=== PATIENT | male | born 2000 | race Caucasian/White ===

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

== ENCOUNTER → 2021-10-14 16:47 | Outpatient (CLI) | payer BC, OTHER, SELFPAY ==
[2021-10-14 17:54] LABS: Add Manual Diff / Slide Review NO; Basophils Absolute Auto 0 /uL (0-100); Eosinophils Absolute Auto 100 /uL (0-450); Eosinophils Percent Auto 2.9 % (2-4); Hematocrit 44.8 % (41-53); Hemoglobin 15.3 g/dL (13.5-17.5); Lymphocytes Absolute Auto 1300 /uL (1100-4500); Lymphocytes Percent Auto 26.5 % (25-40); Mean Corpuscular HGB Conc 34.2 % (30-36); Mean Corpuscular Hemoglobin 29.3 PG (26-34); Mean Corpuscular Volume 85.8 fL (80-100); Monocytes Absolute Auto 500 /uL (0-900); Monocytes Percent Auto 10.2 % (3-14); Neutrophils Absolute Auto 2900 /uL (1500-7000); Neutrophils Percent Auto 59.4 % (50-75); Platelet Count 198 X10^3/uL (150-400); Red Blood Cell Count 5.23 X10^6/uL (4.5-5.9); White Blood Cell Count 4.9 X10^3/uL (4.5-11.0)
[2021-10-14 18:04] LABS: Reticulocyte Count, Percent 0.8 % (0.9-2.6)
[2021-10-14 18:55] LABS: Albumin 4.5 g/dL (3.5-5.0); BUN Creatinine Ratio 20.9 (6-22); Blood Urea Nitrogen 18 mg/dL (9-20); Calcium 8.8 mg/dL (8.4-10.2); Carbon Dioxide 29 mmol/L (22-32); Chloride 102 mmol/L (98-107); Estimated Glomerular Filt Rate > 60 mL/min (>60); Glucose 111 mg/dL (70-100); HEMOLYSIS < 15 (0-50); Phosphorous 3.9 mg/dL (4.5-5.5); Potassium 3.7 mmol/L (3.4-5.1); Sodium 143 mmol/L (137-145)
[2021-10-15 23:40] LABS: Protein S Antigen 36 % (60-150); Protein S-Functional 27 % (63-140)
== END ==
PROVIDERS: Family Provider Pediatrics; Referring Provider Internal Medicine Hematology; Visit Provider Internal Medicine Hematology
DX: D68.59 Other primary thrombophilia (principal); Z79.01 Long term (current) use of anticoagulants
CPT/HCPCS: 36415; 80069; 85025; 85045; 85306

== ENCOUNTER 2022-10-22 22:17 | Emergency (ER) | payer BC, SELFPAY ==
[2022-10-22 22:36] VITALS: BP 140/86; PULSE 70; RESP 16; TEMP 36.3; O2SAT 100; BMI 25.0
[2022-10-22] MEDS: IBUPROFEN 400 MG TABLET PO (22:46)
[2022-10-22] MEDS: ACETAMINOPHEN 325 MG TABLET PO (22:47)
== END 2022-10-23 02:15 | disposition left against medical advice (07) ==
PROVIDERS: Emergency Provider Emergency Medicine; Family Provider Pediatrics
DX: H92.03 Otalgia, bilateral (principal); W16.92XA Jumping or diving into unspecified water causing other injury, initial encounter
CPT/HCPCS: 99283